=== PATIENT | male | born 1960 | race Caucasian/White ===

== ENCOUNTER 2020-08-10 11:06 | Emergency (ER) | payer OTHER, SELFPAY ==
--- NOTE | ~2020-08-10 | XR_ITS ---
EXAMINATION: XR ankle LT min 3V DATE: 08/10/2020 11:47 INDICATION: Left ankle pain TECHNIQUE: Anteroposterior, lateral, mortise, and additional oblique view of the ankle were obtained. COMPARISON: None. FINDINGS: There is soft tissue swelling of ankle. A tiny heterotopic ossification is seen medial to t he medial malleolus. Bone alignment is normal. A plantar calcaneal enthesophyte is noted. There is ca lcified atherosclerosis. IMPRESSION: 1. Tiny heterotopic ossification adjacent to the medial malleolus which could reflect avulsion injury . Reviewed, dictated and finalized at location A. IMPRESSION: 1. Tiny heterotopic ossification adjacent to the medial malleolus which could r eflect avulsion injury.
[2020-08-10 11:28] VITALS: BP 164/67; PULSE 49; RESP 18; TEMP 36.2; O2SAT 99
--- NOTE | 2020-08-10 12:20 | ED.LOWEXIN ---
HPI - Extremity Injury (Lower) General Chief Complaint: Extremity Injury, Lower Stated Complaint: gout Time Seen by Provider: 08/10/20 12:08 Source: patient and RN notes reviewed Mode of arrival: ambulatory Limitations: no limitations History of Present Illness HPI Narrative: Patient presents today complaining of possible gout to his left ankle. States he twisted his left ankle 2 days ago at work and believes this may have started an exacerbation of his gout. Since that time his ankle has become more swollen and tender. Currently rates pain 5/10 and has been taking his normal 81 mg aspirin daily. Pain increases with weightbearing and walking. States he typically takes prednisone for gout flares as he cannot tolerate indomethacin or allopurinol. He does not currently have a primary. MD complaint: ankle injury Related Data Home Medications Medication Instructions Recorded Confirmed Blood Thinner PO DAILY 08/10/20 Lipitor PO DAILY 08/10/20 aspirin [Adult Low Dose Aspirin] 81 mg PO DAILY 08/10/20 08/10/20 escitalopram oxalate [Lexapro] 20 mg PO DAILY 08/10/20 08/10/20 lisinopril PO DAILY 08/10/20 Allergies Allergy/AdvReac Type Severity Reaction Status Date / Time No Known Allergies Allergy Verified 08/10/20 11:22 Review of Systems Review of Systems: Narrative: CONSTITUTIONAL: Denies body aches, fever, chills, or sweats. EYES: Denies visual changes, redness, or discharge. ENT: Denies rhinorrhea, congestion, sore throat, or otalgia. CARDIOVASCULAR: Denies chest pain, palpitations, or edema. RESPIRATORY: Denies cough or dyspnea. GASTROINTESTINAL: Denies abdominal pain, nausea, vomiting, or diarrhea. GENITOURINARY: Denies dysuria or hematuria. SKIN: Denies rash, itching, or wounds. MUSCULOSKELETAL: Denies back pain, or myalgia. + Left ankle pain NEUROLOGIC: Denies headache, numbness, tingling, or weakness. PSYCH: Denies depression or anxiety. [facility], [facility] Past Medical History Medical History (Updated 08/10/20 @ 12:24 by Mine Vernon, DMITRY, ANIKA) History of gout Surgical History Surgical History (Updated 08/10/20 @ 12:21 by Mine Vernon, DMITRY, BC) Hx of CABG Comments At time of signature, I have reviewed and agree with nursing past medical, surgical, social and family history unless otherwise noted. Please see nursing chart for further information. There is no relevant family history pertinent to the presenting complaint Exam Narrative: Exam Narrative: GENERAL: Well-appearing, well-nourished, and in no acute distress. HEAD: Normocephalic, atraumatic. EYES: EOMI. No redness or drainage. Conjunctivae normal. ENT: Mucous membranes pink and moist. NECK: Normal AROM. CHEST: No respiratory distress. EXTREMITIES: Left ankle: Tenderness to lateral and medial malleolus as well as anterior ankle with mild edema. Distal sensation intact. Capillary refill normal. Pedal pulse normal. Full range of motion of the ankle and all toes. There is some mild erythema about the ankle. No ecchymosis. SKIN: Warm, dry, no rash. Capillary refill normal. Normal skin turgor. NEURO: No focal deficits. Alert and oriented x3. Gait steady. PSYCH: Normal affect. No signs of depression or anxiety. Course Vital Signs Vital signs: Vital Signs Temperature 97.2 F L 08/10/20 11:28 Pulse Rate 49 L 08/10/20 11:28 Respiratory Rate 18 08/10/20 11:28 Blood Pressure 164/67 H 08/10/20 11:28 Pulse Oximetry 99 08/10/20 11:28 Temperature 97.2 F L 08/10/20 11:28 Pulse Rate 49 L 08/10/20 11:28 Respiratory Rate 18 08/10/20 11:28 Blood Pressure 164/67 H 08/10/20 11:28 Pulse Oximetry 99 08/10/20 11:28 Reviewed. Pt has been instructed to follow up with his PCP regarding his elevated blood pressure today. MDM - Extremity Injury (Lower) Differential Diagnosis Differential diagnosis: Likely ankle sprain and strain, ankle fracture and other (Gout flare) Imaging Data Radiologist's impression: ITS Impr
== END 2020-08-10 12:33 | disposition home or self-care (01) ==
PROVIDERS: Emergency Provider Nurse Practitioner
DX: S93.402A Sprain of unspecified ligament of left ankle, initial encounter (principal); X50.9XXA Other and unspecified overexertion or strenuous movements or postures, initial encounter; M10.9 Gout, unspecified; Z95.1 Presence of aortocoronary bypass graft; Z79.82 Long term (current) use of aspirin
CPT/HCPCS: 73610; 99213; G0463

== ENCOUNTER 2020-10-08 09:12 | Emergency (ER) | payer OTHER, SELFPAY ==
[2020-10-08 09:20] VITALS: BP 132/67; PULSE 51; RESP 14; TEMP 36.2; O2SAT 100
[2020-10-08 09:36] VITALS: BP 132/67; PULSE 51; RESP 14; TEMP 36.2; O2SAT 100
--- NOTE | 2020-10-08 09:43 | ED.EXTPRO ---
HPI - Extremity Problem General Chief complaint: Extremity Problem,Nontraumatic Stated complaint: left foot pain Time Seen by Provider: 10/08/20 09:38 Source: patient and RN notes reviewed Mode of arrival: ambulatory Limitations: no limitations History of Present Illness HPI Narrative: 60-year-old male presents with concern for possible gout to his left lower extremity. He reports a history of gout to that foot, ankle, and toe. Reports yesterday he started having pain, mild redness and swelling to the ankle, foot, toes. Reports symptoms worsened today. Reports pain at rest, pain with range of motion. He denies any open sores, drainage in any area, injury or trauma. MD Complaint: extremity pain Related Data Home Medications Medication Instructions Recorded Confirmed aspirin [Adult Low Dose Aspirin] 81 mg PO DAILY 08/10/20 10/08/20 escitalopram oxalate [Lexapro] 20 mg PO DAILY 08/10/20 10/08/20 atorvastatin 80 mg PO DAILY 10/08/20 10/08/20 lisinopril 5 mg PO DAILY 10/08/20 10/08/20 metoprolol tartrate 50 mg PO Q12H 10/08/20 10/08/20 Allergies Allergy/AdvReac Type Severity Reaction Status Date / Time No Known Allergies Allergy Verified 10/08/20 09:30 Review of Systems Review of Systems: Narrative: CONSTITUTIONAL: Denies malaise, chills, sweats, or fever. CARDIOVASCULAR: Denies chest pain, palpitations, or edema. RESPIRATORY: Denies cough or dyspnea. GASTROINTESTINAL: Denies abdominal pain, nausea, vomiting, diarrhea SKIN: Denies lacerations, abrasions. Reports redness, swelling to the left ankle, foot, toes MUSCULOSKELETAL: Reports pain to left ankle, foot, toes NEUROLOGIC: Denies numbness, weakness All systems reviewed & are unremarkable except as noted in HPI and below PMFSH Past Medical History Medical History (Updated 10/08/20 @ 09:46 by China Holt NP) History of gout Surgical History Surgical History (Updated 08/10/20 @ 12:21 by Mine Vernon, [employer], ) Hx of CABG Comments At time of signature, agree with nursing past medical, surgical, social and family history. There is no relevant family history pertinent to the presenting complaint Exam Narrative: Exam Narrative: GENERAL: Well-appearing, well-nourished, and in no acute distress. HEAD: Normocephalic, atraumatic. EYES: PERRLA, conjunctivae clear NECK: Supple. CHEST: Speaks in full sentences. No respiratory distress. HEART: Regular rate and rhythm. Normal and equal peripheral pulses. EXTREMITIES: Left foot, ankle, digits have normal strength and sensation, normal range of motion. No ecchymosis. 5/5 strength with [xxx] flexion and extension. Normal sensation with sensitivity to light touch and pain. No point tenderness. No open wounds, no skin tenting, no devitalized tissue or atrophy, no trophic changes, no obvious deformity, alignment normal, nearby joints and structures intact. Distal pulses palpable and equal bilaterally, skin warm, dry, pink. Capillary refill less than 3 seconds. SKIN: Warm, dry, no rash. Left foot ankle, foot, digits erythematous, mildly edematous, tender NEURO: Alert and oriented x3. PSYCH: Normal mood and affect Course Course Emergency Course: Patient is aware of diagnosis, understands and agrees to treatment plan. Anticipatory guidance given. Patient agrees to follow-up as directed and is aware of reasons to seek care at the emergency department. Portions of this record may have been created with voice recognition software Vital Signs Vital signs: Vital Signs Temperature 97.2 F L 10/08/20 09:20 Pulse Rate 51 L 10/08/20 09:20 Respiratory Rate 14 10/08/20 09:20 Blood Pressure 132/67 10/08/20 09:20 Pulse Oximetry 100 10/08/20 09:20 Temperature 97.2 F L 10/08/20 09:36 Pulse Rate 51 L 10/08/20 09:36 Respiratory Rate 14 10/08/20 09:36 Blood Pressure 132/67 10/08/20 09:36 Pulse Oximetry 100 10/08/20 09:36 Reviewed. MDM - Extremity (Nontraumatic) MDM Narrative Medical decis
== END 2020-10-08 09:55 | disposition home or self-care (01) ==
PROVIDERS: Emergency Provider Nurse Practitioner
DX: M10.072 Idiopathic gout, left ankle and foot (principal); Z95.1 Presence of aortocoronary bypass graft; E78.00 Pure hypercholesterolemia, unspecified
CPT/HCPCS: 99213; G0463

== ENCOUNTER 2020-10-14 08:19 | Emergency (ER) | payer OTHER, SELFPAY ==
--- NOTE | 2020-10-14 08:22 | ED.LOWEXIN ---
HPI - Extremity Injury (Lower) General Chief Complaint: Extremity Injury, Lower Stated Complaint: right foot swollen Time Seen by Provider: 10/14/20 08:22 Source: patient and RN notes reviewed History of Present Illness HPI Narrative: Patient is a 60-year-old male who presents the urgent care with complaints of right foot swelling and pain. Patient states that he has recurrent gout and was here on 10/08/2020 with a gout flare. Patient states that he did not take his last dose of 50 mg prednisone because he left it at work . Patient states his last dose of the steroid was on Tuesday and he was feeling good . Patient states that it started to recur with the swelling on Tuesday. Patient denies of any use of [id number] medication. States that he cannot take allopurinol because it makes him sick and he can also not have indomethacin because of his heart related issues. Patient states he has had 5 bypass surgeries in the past but has never had any issues of lower extremity swelling due to CHF. Patient denies of any chest pain. Denies of any shortness of breath. Patient states that this is just like his recurrent gout . Patient does not currently have a doctor and therefore has not had a uric acid level drawn in some time but states that he does try to follow the diet appropriately. Patient denies of any known injury to the extremity. No other acute complaints. No acute distress noted. Patient aware of the plan of care. Some parts of this dictation were generated by voice recognition software and may contain typographical and/or grammatical inaccuracies. Related Data Home Medications Medication Instructions Recorded Confirmed escitalopram oxalate [Lexapro] 20 mg PO DAILY 08/10/20 10/14/20 atorvastatin 80 mg PO DAILY 10/08/20 10/14/20 lisinopril 5 mg PO DAILY 10/08/20 10/14/20 metoprolol tartrate 50 mg PO Q12H 10/08/20 10/14/20 aspirin [Adult Aspirin EC Low 81 mg PO DAILY 10/14/20 10/14/20 Strength] Allergies Allergy/AdvReac Type Severity Reaction Status Date / Time No Known Allergies Allergy Verified 10/14/20 08:24 Review of Systems Review of Systems: Narrative: CONSTITUTIONAL: Denies fever, chills, or sweats. EYES: Denies visual changes, redness, or discharge. ENT: Denies rhinorrhea, congestion, sore throat, or otalgia. CARDIOVASCULAR: Denies chest pain, palpitations, or edema. RESPIRATORY: Denies cough or dyspnea. GASTROINTESTINAL: Denies abdominal pain, nausea, vomiting, or diarrhea. GENITOURINARY: Denies dysuria or hematuria. SKIN: Denies rash or itching. MUSCULOSKELETAL: Reports of right foot swelling NEUROLOGIC: Denies headache, numbness, or weakness. All other systems reviewed are negative, except as documented in HPI. [facility], [facility] Past Medical History Medical History (Updated 10/14/20 @ 08:35 by DMITRY Mcknight) History of gout Surgical History Surgical History (Updated 08/10/20 @ 12:21 by Mine Vernon, DMITRY, ) Hx of CABG Comments At the time of my signature, I reviewed and agree with the nursing past medical, surgical, social, and family history. There is no relevant family history pertinent to the patient complaint. Exam Narrative: Exam Narrative: GENERAL: This is a well-nourished, well-developed patient, in no apparent distress. HEAD: normocephalic, atraumatic. EYES: PERRL. Sclera clear/white. Vision is grossly intact. EARS: External ears normal NOSE: External nose normal with no obvious nasal discharge, nares without redness, no rhinorrhea. THROAT: Mucous membranes moist NECK: Neck supple CARDIOVASCULAR: Regular rate and rhythm without murmurs, gallops, or rubs. RESPIRATORY: Clear to auscultation. Breath sounds equal bilaterally. No wheezes, rales, or rhonchi. SKIN: warm, intact with no suspicious lesions or rash, good texture and turgor. NEURO: awake, alert, and oriented to person, place and time. There were no obvious focal neurologic abnormalities. EXTREMITIES: Mild 1+ non-
[2020-10-14 08:25] VITALS: BP 112/73; PULSE 86; RESP 20; TEMP 36.4; O2SAT 100
== END 2020-10-14 08:42 | disposition home or self-care (01) ==
PROVIDERS: Emergency Provider Nurse Practitioner Family
DX: M1A.0710 Idiopathic chronic gout, right ankle and foot, without tophus (tophi) (principal); I25.10 Atherosclerotic heart disease of native coronary artery without angina pectoris; Z95.1 Presence of aortocoronary bypass graft; E78.5 Hyperlipidemia, unspecified
CPT/HCPCS: 99213; G0463